=== PATIENT | female | born 1950 | race Caucasian/White ===

== ENCOUNTER 2022-05-29 10:58 | Inpatient (IN) | payer MEDICARE ==
[2022-05-29 12:24] LABS: Basophils % (A) 0 %; Eosinophils % (A) 0 %; HCT 43.9 % (34.0-46.0); HGB 15.4 gm/dL (11.4-16.0); Lymphocytes # (A) 1.1 k/uL (1.0-4.8); Lymphocytes % (A) 11 %; MCH 32.1 pg (25.0-35.0); MCHC 35.1 g/dL (31.0-37.0); MCV 91.7 fL (80.0-100.0); Mean Platelet Volume 7.6; Monocytes # (A) 0.3 k/uL (0-1.0); Monocytes % (A) 3 %; Neutrophils # (A) 8.5 k/uL (1.3-7.7); Neutrophils % (A) 85 %; Platelet Count 329 k/uL (150-450); RBC 4.79 m/uL (3.80-5.40); RDW 11.7 % (11.5-15.5)
[2022-05-29 12:41] LABS: Albumin 5.1 g/dL (3.5-5.0); Potassium 3.6 mmol/L (3.5-5.1); Total Bilirubin 1.6 mg/dL (0.2-1.3); Total Protein 8.5 g/dL (6.3-8.2)
--- NOTE | 2022-05-29 13:23 | XR ---
EXAMINATION TYPE: XR KUB DATE OF EXAM: 05/29/2022 COMPARISON: NONE HISTORY: Pain TECHNIQUE: Single supine KUB image of the abdomen is obtained FINDINGS: Small bowel demonstrates no evidence for dilatation or air fluid levels. Gas and fecal material is seen in non-distended colon. No convincing evidence for pneumoperitoneum. No unusual calcifications. The lung bases are clear. The osseous structures are intact. IMPRESSION: 1. Overall nonobstructive bowel gas pattern.
--- NOTE | 2022-05-29 14:01 | ED ---
General Adult HPI - General Chief complaint: Abdominal Pain Stated complaint: abd pain, nausea Time Seen by Provider: 05/29/22 13:59 Source: patient, RN notes reviewed Mode of arrival: ambulatory Limitations: no limitations - History of Present Illness Initial comments: Patient is a 72-year-old female presenting to the emergency room with complaints of intermittent abdominal pain ongoing for approximately 6 months with worsening over the last few weeks. She reports that she has had constipation and has not had a bowel movement since Thursday and has had episodes of nausea and vomiting with her last episode of emesis this morning she reports that the vomiting is bilious in nature. She denies any hematemesis. She reports that she has pain in the left lower quadrant that is intermittent but persistent in that she feels a bulging in that region at times. She reports that prior to her episodes of emesis she does have some bilateral upper quadrant pain as well. She denies any diarrhea, bloody or mucus-like stool. She denies any chest pain, shortness of breath, altered mental status, lethargy, fevers or chills. She has a past medical history significant for hypertension and hyperlipidemia. She has multiple known abdominal hernias. - Related Data Home Medications Medication Instructions Recorded Confirmed Lovastatin [Mevacor] 20 mg PO HS 03/15/15 05/29/22 hydroCHLOROthiazide [Hydrodiuril] 50 mg PO DAILY 03/15/15 05/29/22 Aspirin EC [Ecotrin] 81 mg PO HS 03/27/15 05/29/22 Acetaminophen [Tylenol Arthritis] 1,300 mg PO DAILY 05/29/22 05/29/22 Famotidine [Pepcid] 20 mg PO HS 05/29/22 05/29/22 Allergies Allergy/AdvReac Type Severity Reaction Status Date / Time balsam destiny Allergy Unknown Verified 05/29/22 15:05 latex Allergy Unknown Verified 05/29/22 15:05 neomycin Allergy Unknown Verified 05/29/22 15:05 nickel Allergy Unknown Verified 05/29/22 15:05 quaternium Allergy Unknown Verified 05/29/22 15:05 thimerosal Allergy Unknown Verified 05/29/22 15:05 rubber Allergy Unknown Uncoded 05/29/22 15:05 Review of Systems ROS Statement: Those systems with pertinent positive or pertinent negative responses have been documented in the HPI. ROS Other: All systems not noted in ROS Statement are negative. Past Medical History Past Medical History: Hyperlipidemia, Hypertension History of Any Multi-Drug Resistant Organisms: None Reported Past Surgical History: Ear Surgery Past Psychological History: No Psychological Hx Reported Past Alcohol Use History: Occasional Past Drug Use History: None Reported General Exam Limitations: no limitations General appearance: alert, in no apparent distress Head exam: Present: atraumatic, normocephalic, normal inspection Eye exam: Present: normal appearance, PERRL, EOMI. Absent: scleral icterus, conjunctival injection, periorbital swelling ENT exam: Present: normal exam, mucous membranes moist Neck exam: Present: normal inspection. Absent: tenderness Respiratory exam: Present: normal lung sounds bilaterally. Absent: respiratory distress, wheezes, rales, rhonchi, stridor Cardiovascular Exam: Present: regular rate, normal rhythm, normal heart sounds. Absent: systolic murmur, diastolic murmur, rubs, gallop, clicks GI/Abdominal exam: Present: soft, tenderness (LLQ), hernia (umbical reducible; left lower tender no significant reduction on exam). Absent: distended, guarding, rebound, rigid Rectal exam: Present: deferred Extremities exam: Present: normal inspection. Absent: pedal edema, joint swelling Back exam: Present: normal inspection, full ROM Neurological exam: Present: alert, oriented X3, CN II-XII intact Psychiatric exam: Present: normal affect, normal mood Skin exam: Present: warm, dry, intact, normal color. Absent: rash Course Vital Signs 05/29/22 11:41 Temperature 98.7 F Pulse Rate 110 H Respiratory 20 Rate Blood Pressure 144/75 O2 Sat by Pulse 95 Oximetry Medical Decision Making - Medical Decision Making 72-year-old female presenting to the emergency room with intermittent abdominal pain with no bowel movement for 4 days along with nausea and vomiting worse after eating. KUB, CBC and CMP all ordered and completed after triage prior to being evaluated by provider. KUB interpreted by me demonstrates nonsp ecific gas pattern. See FEEDER WORKER POWER UNIT OPERATOR reveals elevated total bilirubin at 1.6 and elevated creatinine at 1.35 without previous known hepatic disease or renal disease. Is to elevate ALT and AST and alk phos all normal. CBC had a initial count of 8.5 otherwise unremarkable. Due to symptom presentation will obtain CT of the abdomen and pelvis to rule out further GI etiology. CT of the abdomen and pelvis without contrast demonstrates left-sided hernia with small bowel obstruction. Unincarcerated umbilical hernia also demonstrated on computed tomography scan. Radiologist report reviewed. Will start on IV hyd ration and keep nothing by mouth. Will page surgeon organic preparation analyst for further recommendations and admission for small bowel obstruction. Dr. Card evaluated patient and is admitting patient for possible surgery later this evening versus in the a.m. No further orders received at this time. Will place admission orders to Dr. york service with consult to medical management. Spoke with Dr. scott earlier in the afternoon regarding likelihood of admission and need for medical management he advises that they will follow patient from medical standpoint. Patient resting comfortably at this time. Will maintain nothing by mouth status. Denies analgesic need at this time. Case discussed with Dr. Richey. - Lab Data Result diagrams: 05/29/22 11:48 12 11:48 Lab Results 05/29/22 05/29/22 Range/Units 11:48 11:48 WBC 10.0 (3.8-10.6) k/uL RBC 4.79 (3.80-5.40) m/uL Hgb 15.4 (11.4-16.0) gm/dL Hct 43.9 (34.0-46.0) % MCV 91.7 (80.0-100.0) fL MCH 32.1 (25.0-35.0) pg MCHC 35.1 (31.0-37.0) g/dL RDW 11.7 (11.5-15.5) % Plt Count 329 (150-450) k/uL MPV 7.6 Neutrophils % 85 % Lymphocytes % 11 % Monocytes % 3 % Eosinophils % 0 % Basophils % 0 % Neutrophils # 8.5 H (1.3-7.7) k/uL Lymphocytes # 1.1 (1.0-4.8) k/uL Monocytes # 0.3 (0-1.0) k/uL Eosinophils # 0.0 (0-0.7) k/uL Basophils # 0.0 (0-0.2) k/uL Sodium 133 L (137-145) mmol/L Potassium 3.6 (3.5-5.1) mmol/L Chloride 84 L (98-107) mmol/L Carbon Dioxide 36 H (22-30) mmol/L Anion Gap 13 mmol/L BUN 16 (7-17) mg/dL Creatinine 1.35 H (0.52-1.04) mg/dL Est GFR (CKD-EPI)AfAm 45 (>60 ml/min/1.73 sqM) Est GFR (CKD-EPI)NonAf 39 (>60 ml/min/1.73 sqM) Glucose 128 H (74-99) mg/dL Calcium 10.0 (8.4-10.2) mg/dL Total Bilirubin 1.6 H (0.2-1.3) mg/dL AST 28 (14-36) U/L ALT 20 (4-34) U/L Alkaline Phosphatase 87 (38-126) U/L Total Protein 8.5 H (6.3-8.2) g/dL Albumin 5.1 H (3.5-5.0) g/dL Amylase 69 (30-110) U/L Lipase 83 (23-300) U/L - Radiology Data Radiology results: report reviewed, image reviewed KUB impression by radiologist overall nonobstructive gas bowel pattern. CT of the abdomen and pelvis impression by radiologist incarcerated left-sided spigelian resulting in small bowel obstruction. Disposition Clinical Impression: Small bowel obstruction, Incarcerated hernia Disposition: ADMITTED IP TO THIS [facility] Condition: Stable Is patient prescribed a controlled substance at d/c from ED?: No Referrals: Nakia Juan MD [Primary Care Provider] - 1-2 days
--- NOTE | 2022-05-29 15:21 | CT ---
EXAMINATION TYPE: CT abdomen pelvis wo con DATE OF EXAM: 05/29/2022 COMPARISON: None HISTORY: abdominal pain, vomiting CT DLP: 581.4 mGycm Examination of the solid and hollow viscera is limited given the lack of contrast. FINDINGS: LUNG BASES: No evidence for nodule. No evidence for infiltrate. LIVER/GB: The gallbladder is unremarkable. No space-occupying hepatic lesion. PANCREAS: No pancreatic mass identified. No inflammatory process seen. SPLEEN: No evidence for splenomegaly. No intrasplenic lesions seen. ADRENALS: No adrenal nodules identified. No evidence for thickening. KIDNEYS: No evidence for renal mass. No nephrolithiasis. No hydronephrosis. BOWEL: Dilated small bowel loops measuring up to 4.7 cm involving primarily the jejunum. Incarcerated left-sided spigelian hernia see coronal image 35 sequence 202 and axial image 57 sequence 201. Dilat ed stomach and refluxing into the esophagus. Hiatal hernia noted. Remaining small bowel loops are of normal caliber. Fat-containing umbilical hernia. Normal appendix and colon. Lymph nodes: No evidence for adenopathy greater than 1 cm. Abdominal aorta: Atheromatous changes seen. No evidence for aneurysm. Genital organs: No significant abnormality. Other: No significant abnormality. IMPRESSION: 1. Incarcerated left-sided spigelian hernia resulting in small bowel obstruction.
[2022-05-29] MEDS ORDERED: SODIUM CHLORIDE 0.9% 1,000 ML IV STA (15:44)
--- NOTE | 2022-05-29 18:17 | P.GSHP ---
History of Present Illness H&P Date: 05/29/22 Chief Complaint: Incarcerated hernia 72-year-old female comes in the hospital with complaints of abdominal pain over the last 2-3 days. Patient describes intermittent pain for the last 6 months but over the last few days it was worse. It was crampy in nature along with abd ominal bloating and frequent vomiting. Last small moment 3 days ago. Patient with known umbilical hernia. She states she already knew she had 2 protruding lumps in the left side of her abdomen as well. White blood cell count is 10. CAT scan was performed showing a incarcerated left spigelian hernia containing a loop of bowel causing bowel obstruction. Liver enzymes slightly elevated. No prior surgeries. CAT scan also showing moderate sized umbilical hernia. Past Medical History Past Medical History: Hyperlipidemia, Hypertension History of Any Multi-Drug Resistant Organisms: None Reported Past Surgical History: Ear Surgery Past Psychological History: No Psychological Hx Reported Past Alcohol Use History: Occasional Past Drug Use History: None Reported Medications and Allergies Home Medications Medication Instructions Recorded Confirmed Type Lovastatin [Mevacor] 20 mg PO HS 03/15/15 05/29/22 History hydroCHLOROthiazide [Hydrodiuril] 50 mg PO DAILY 03/15/15 05/29/22 History Aspirin EC [Ecotrin] 81 mg PO HS 03/27/15 05/29/22 History Acetaminophen [Tylenol Arthritis] 1,300 mg PO DAILY 05/29/22 05/29/22 History Famotidine [Pepcid] 20 mg PO HS 05/29/22 05/29/22 History Allergies Allergy/AdvReac Type Severity Reaction Status Date / Time balsam destiny Allergy Unknown Verified 05/29/22 15:05 latex Allergy Unknown Verified 05/29/22 15:05 neomycin Allergy Unknown Verified 05/29/22 15:05 nickel Allergy Unknown Verified 05/29/22 15:05 quaternium Allergy Unknown Verified 05/29/22 15:05 thimerosal Allergy Unknown Verified 05/29/22 15:05 rubber Allergy Unknown Uncoded 05/29/22 15:05 Surgical - Exam Vital Signs Temp Pulse Resp BP Pulse Ox 98.7 F 110 H 20 144/75 95 05/29/22 11:41 05/29/22 11:41 05/29/22 11:41 05/29/22 11:41 05/29/22 11:41 Physical exam: General: Well-developed, well-nourished HEENT: Normocephalic, sclerae nonicteric Abdomen: Mild distention, mild diffuse tenderness, umbilical hernia able to be reduced, no palpable left inguinal hernia, palpable hernia left lower abdomen at suspected site of spigelian unable to be reduced Extremities: No edema Neuro: Alert and oriented Results - Labs 05/29/22 11:48 05/29/22 11:48 Abnormal Lab Results - Last 24 Hours (Table) 05/29/22 05/29/22 Range/Units 11:48 11:48 Neutrophils # 8.5 H (1.3-7.7) k/uL Sodium 133 L (137-145) mmol/L Chloride 84 L (98-107) mmol/L Carbon Dioxide 36 H (22-30) mmol/L Creatinine 1.35 H (0.52-1.04) mg/dL Glucose 128 H (74-99) mg/dL Total Bilirubin 1.6 H (0.2-1.3) mg/dL Total Protein 8.5 H (6.3-8.2) g/dL Albumin 5.1 H (3.5-5.0) g/dL Diabetes panel 05/29/22 Range/Units 11:48 Sodium 133 L (137-145) mmol/L Potassium 3.6 (3.5-5.1) mmol/L Chloride 84 L (98-107) mmol/L Carbon Dioxide 36 H (22-30) mmol/L BUN 16 (7-17) mg/dL Creatinine 1.35 H (0.52-1.04) mg/dL Glucose 128 H (74-99) mg/dL Calcium 10.0 (8.4-10.2) mg/dL AST 28 (14-36) U/L ALT 20 (4-34) U/L Alkaline Phosphatase 87 (38-126) U/L Total Protein 8.5 H (6.3-8.2) g/dL Albumin 5.1 H (3.5-5.0) g/dL Calcium panel 05/29/22 Range/Units 11:48 Calcium 10.0 (8.4-10.2) mg/dL Albumin 5.1 H (3.5-5.0) g/dL Pituitary panel 05/29/22 Range/Units 11:48 Sodium 133 L (137-145) mmol/L Potassium 3.6 (3.5-5.1) mmol/L Chloride 84 L (98-107) mmol/L Carbon Dioxide 36 H (22-30) mmol/L BUN 16 (7-17) mg/dL Creatinine 1.35 H (0.52-1.04) mg/dL Glucose 128 H (74-99) mg/dL Calcium 10.0 (8.4-10.2) mg/dL Adrenal panel 05/29/22 Range/Units 11:48 Sodium 133 L (137-145) mmol/L Potassium 3.6 (3.5-5.1) mmol/L Chloride 84 L (98-107) mmol/L Carbon Dioxide 36 H (22-30) mmol/L BUN 16 (7-17) mg/dL Creatinine 1.35 H (0.52-1.04) mg/dL Glucose 128 H (74-99) mg/dL Calcium 10.0 (8.4-10.2) mg/dL Total Bilirubin 1.6 H (0.2-1.3) mg/dL AST 28 (14-36) U/L ALT 20 (4-34) U/L Alkaline Phosphatase 87 (38-126) U/L Total Protein 8.5 H (6.3-8.2) g/dL Albumin 5.1 H (3.5-5.0) g/dL Assessment and Plan (1) Incarcerated hernia Narrative/Plan: 72-year-old female with incarcerated hernia left lower abdomen likely representing a spigelian hernia. Clinical scenario reviewed in detail with the patient and also her sister. Patient will require surgical intervention given the inability to reduce this at this time. Laparoscopic and open approaches discussed. We'll proceed with open repair incarcerated spigelian hernia. We'll not plan on utilizing mesh given the small bowel incarceration and associated bowel obstruction present. Risks of bleeding, infection, recurrence, bladder and bowel injury, numbness, nerve injury were discussed with the patient. The patient understands and wishes to proceed. Current Visit: Yes Status: Acute Code(s): K46.0 - UNSP ABDOMINAL HERNIA WITH OBSTRUCTION, WITHOUT GANGRENE SNOMED Code(s): 00869703
[2022-05-29] MEDS ORDERED: NALOXONE 0.4 MG/ML 1 ML VIAL IV PRN (19:29)
[2022-05-30] MEDS ORDERED: ONDANSETRON 4 MG/2 ML VIAL IVP PRN (00:47)
[2022-05-30] MEDS ORDERED: LACTATED RINGERS 1,000 ML IV ONE ×4 (02:07→03:10)
[2022-05-30] MEDS ORDERED: METOCLOPRAMIDE 5 MG/ML 2 ML VIAL IVP ONE (02:10)
[2022-05-30] MEDS ORDERED: FAMOTIDINE 20 MG/2 ML VIAL IVP ONE (02:15)
[2022-05-30] MEDS ORDERED: PROPOFOL 10 MG/ML 20 ML VIAL IV ONE (02:38)
[2022-05-30] MEDS ORDERED: SUCCINYLCHOLINE CHLORIDE 200 MG/10 ML VIAL IV ONE (02:38)
[2022-05-30] MEDS ORDERED: GLYCOPYRROLATE 0.2 MG/ML 2 ML VIAL ONE (02:38)
[2022-05-30] MEDS ORDERED: LIDOCAINE 2% INJ 20 MG/ML (2 ML VIAL) ONE (02:38)
[2022-05-30] MEDS ORDERED: MIDAZOLAM 2 MG/2 ML VIAL ONE (02:38)
[2022-05-30] MEDS ORDERED: ROCURONIUM 10 MG/ML (5 ML VIAL) IV ONE (02:38)
[2022-05-30] MEDS ORDERED: NEOSTIGMINE 1 MG/ML 10 ML VIAL ONE (02:38)
[2022-05-30] MEDS ORDERED: fentaNYL (PF) 50 MCG/ML 2 ML AMP ONE (02:38)
[2022-05-30] MEDS ORDERED: SODIUM CHLORIDE 0.9% 100 ML with ceFAZolin 2,000 MG IV ONE ×2 (03:00)
[2022-05-30] MEDS ORDERED: BUPIVACAIN-EPI 0.25%-1:200,000 30 ML VIAL SQ ONE (03:10)
[2022-05-30] MEDS ORDERED: HYDROcodone/APAP 5-325MG 1 EACH TAB PO PRN (03:37)
[2022-05-30] MEDS ORDERED: HYDROmorphone 0.5 MG/0.5 ML SYRINGE IVP PRN (03:37)
--- NOTE | 2022-05-30 03:44 | P.OP ---
Date of Procedure: 05/30/22 Procedure(s) Performed: PREOPERATIVE DIAGNOSIS: Incarcerated left spigelian hernia with bowel obstruction POSTOPERATIVE DIAGNOSIS: Same PROCEDURE: Repair incarcerated left spigelian hernia SURGEON: Dr. Card ANESTHESIA: General OPERATIVE PROCEDURE DETAILS: Patient placed in the operative table in supine pos ition. The patient was placed under general anesthesia. Prior anesthesia the patient had a gastric tube placed with 1.5 L of succus evacuated. Later this was switched to a nasogastric tube. A horizontal incision was made in the left lower quadrant overlying the palpable mass. Dissection through the subcutaneous tissues took place using electrocautery. The external oblique was identified and freed of the surrounding fat. This was incised sharply. The underlying hernia sac was then easily seen penetrating through the internal oblique musculature. The hernia sac was not able to be reduced. The defect in the fascia at the internal oblique was lengthened using sharp dissection. Following that we were able to reduce the contents of the hernia. The hernia sac was partially excised. I was able to identify the loop of bowel that was incarcerated. After watching it for several minutes it took on a nice healthy pink color with good peristalsis. There was no evidence of permanent ischemia. The peritoneum was closed using a running locking 2-0 Vicryl suture. The internal oblique/transversus layer was closed horizontally using [id number] Ethibond sutures. The external oblique was then closed using a running 0 PDS suture. Subcutaneous tissues were closed using 3-0 Vicryl sutures. Skin was closed using a running 4-0 Monocryl suture. Skin glue and sterile dressings w ere applied. HERNIA CHARACTERISTICS: Length: 2 cm Width: 2 cm Type: Incarcerated left spigelian TYPE OF MESH USED: None DISPOSITION: Stable to recovery room
[2022-05-30] MEDS ORDERED: HYDROmorphone 0.5 MG/0.5 ML SYRINGE IVP ONE ×2 (03:50→04:07)
[2022-05-30] MEDS ORDERED: SODIUM CHLORIDE 0.9% 1,000 ML IV ONE (04:32)
[2022-05-30] MEDS: KETOROLAC 15 MG/ML 1 ML VIAL IVP SCH ×2 (05:58→12:50)
[2022-05-30] MEDS: ACETAMINOPHEN IV (For NPO) 1,000 MG in EMPTY BAG 1 BAG IVPB SCH ×3 (06:00→17:24)
[2022-05-30] MEDS: HEPARIN SODIUM,PORCINE/PF 5,000 UNIT/0.5 ML SYRINGE SQ SCH ×2 (09:25→17:24)
[2022-05-30] MEDS: PANTOPRAZOLE 40 MG/10 ML VIAL IV SCH (09:25)
--- NOTE | 2022-05-30 16:08 | P.PN ---
Subjective Progress Note Date: 05/30/22 CHIEF COMPLAINT: incarcerated left spigelian hernia with bowel obstruction HISTORY OF PRESENT ILLNESS: Patient is postop day #1 status post Repair incarcerated left spigelian hernia. Patient had Mild pain. She feels much better after surgery. She denies any nausea or vomiting. She is urinating without difficulty. She denies any flatus. Minimal to 0 output through NG tube. Afebrile. WBC 10 Hgb 15.4 creatinine is 1.35 Patient seen and examined with Dr. mathis PHYSICAL EXAM: VITAL SIGNS: Reviewed. GENERAL: Well-developed in no acute distress. HEENT: No sclera icterus. Extraocular movements grossly intact. Moist buccal mucosa. Head is atraumatic, normocephalic. ABDOMEN: Soft. Nondistended. Left groin incision dressing clean dry and intact NEUROLOGIC: Alert and oriented. Cranial nerves II through XII grossly intact. ASSESSMENT: 1. Incarcerated left spigelian hernia with bowel obstruction status post Repair incarcerated left spigelian hernia PLAN: -Discontinue NG tube -Start sips of clears -Encourage patient to ambulate -Incentive spirometer ordered -Discontinue Toradol due to elevated creatinine -Repeat labs in a.m. -GI prophylaxis Protonix and DVT prophylaxis subcu heparin Physician Ammonium Nitrate Crystallizer note has been reviewed by physician. Signing provider agrees with the documented findings, assessment, and plan of care. Objective - Vital Signs Vital signs: Vital Signs Temp 98.0 F 05/30/22 08:00 Pulse 70 05/30/22 08:00 Resp 16 05/30/22 08:00 BP 121/73 05/30/22 08:00 Pulse Ox 99 05/30/22 08:00 FiO2 Intake & Output 05/29/22 05/30/22 05/30/22 18:59 06:59 18:59 Intake Total 800 Output Total 30 Balance 770 Weight 77.111 kg 77.111 kg Intake: IV 800 Output: Gastric Drainage 25 Estimated Blood Loss 5 - Labs CBC & Chem 7: 05/29/22 11:48 05/29/22 11:48
--- NOTE | 2022-05-30 21:10 | P.CONS ---
History of Present Illness - Reason for Consult Consult date: 05/30/22 Medical management - Chief Complaint Abdominal pain/incarcerated hernia - History of Present Illness 72-year-old female presenting to the emergency room with complaints of intermittent abdominal pain ongoing for approximately 6 months with worsening over the last few weeks. She reports that she has had constipation and has not had a bowel movement since Thursday and has had episodes of nausea and vomiting with her last episode of emesis this morning she reports that the vomiting is bi lious in nature. She denies any hematemesis. She reports that she has pain in the left lower quadrant that is intermittent but persistent in that she feels a bulging in that region at times. She reports that prior to her episodes of emesis she does have some bilateral upper quadrant pain as well. She denies any diarrhea, bloody or mucus-like stool. She denies any chest pain, shortness of breath, altered mental status, lethargy, fevers or chills. She has a past medical history significant for hypertension and hyperlipidemia. She has multiple known abdominal hernias. KUB interpreted by me demonstrates nonspecific gas pattern. See DISTRICT CUSTOMS DIRECTOR reveals elevated total bilirubin at 1.6 and elevated creatinine at 1.35 without previous known hepatic disease or renal disease. Is to elevate ALT and AST and alk phos all normal. CBC had a initial count of 8.5 otherwise unremarkable. Due to symptom presentation will obtain CT of the abdomen and pelvis to rule out further GI etiology. CT of the abdomen and pelvis without contrast demonstrates left-sided hernia with small bowel obstruction. Unincarcerated umbilical hernia also demonstrated on computed tomography scan. Radiologist report reviewed. Will start on IV hydration and keep nothing by mouth. Will page surgeon lead front desk agent for further recommendations and admission for small bowel obstruction. Review of Systems REVIEW OF SYSTEMS: CONSTITUTIONAL: No fever, no malaise, no fatigue. HEENT: No recent visual problems or hearing problems. Denied any sore throat. CARDIOVASCULAR: No chest pain, orthopnea, PND, no palpitations, no syncope. PULMONARY: No shortness of breath, no cough, no hemoptysis. GASTROINTESTINAL: No diarrhea, no nausea, no vomiting, no abdominal pain. NEUROLOGICAL: No headaches, no weakness, no numbness. HEMATOLOGICAL: Denies any bleeding or petechiae. GENITOURINARY: Denies any burning micturition, frequency, or urgency. MUSCULOSKELETAL/RHEUMATOLOGICAL: Denies any joint pain, swelling, or any muscle pain. ENDOCRINE: Denies any polyuria or polydipsia. The rest of the 14-point review of systems is negative. Past Medical History Past Medical History: Hyperlipidemia, Hypertension History of Any Multi-Drug Resistant Organisms: None Reported Past Surgical History: Ear Surgery, Tubal Ligation Past Anesthesia/Blood Transfusion Reactions: No Reported Reaction Past Psychological History: No Psychological Hx Reported Smoking Status: Never smoker Past Alcohol Use History: Occasional Past Drug Use History: None Reported Medications and Allergies Home Medications Medication Instructions Recorded Confirmed Type Lovastatin [Mevacor] 20 mg PO HS 03/15/15 05/29/22 History hydroCHLOROthiazide [Hydrodiuril] 50 mg PO DAILY 03/15/15 05/29/22 History Aspirin EC [Ecotrin] 81 mg PO HS 03/27/15 05/29/22 History Acetaminophen [Tylenol Arthritis] 1,300 mg PO DAILY 05/29/22 05/29/22 History Famotidine [Pepcid] 20 mg PO HS 05/29/22 05/29/22 History traMADol HCl [Ultram] 50 mg PO Q6HR PRN 3 Days #12 tab 05/30/22 Rx Allergies Allergy/AdvReac Type Severity Reaction Status Date / Time balsam destiny Allergy Unknown Verified 05/29/22 15:05 latex Allergy Unknown Verified 05/29/22 15:05 neomycin Allergy Unknown Verified 05/29/22 15:05 nickel Allergy Unknown Verified 05/29/22 15:05 quaternium Allergy Unknown Verified 05/29/22 15:05 thimerosal Allergy Unknown Verified 05/29/22 15:05 rubber Allergy Unknown Uncoded 05/29/22 15:05 Physical Exam Vitals: Vital Signs Temp Pulse Pulse Pulse Pulse Resp BP 05/30/22 08:00 98.0 F 70 16 05/30/22 04:30 84 16 05/30/22 04:15 83 17 05/30/22 04:00 94 16 05/30/22 03:45 99.4 F 95 16 05/30/22 02:00 98.8 F 90 15 05/29/22 22:22 94 18 147/72 05/29/22 18:13 98.4 F 85 16 BP BP Pulse Ox 05/30/22 08:00 121/73 99 05/30/22 04:30 138/77 98 05/30/22 04:15 144/74 98 05/30/22 04:00 160/55 96 05/30/22 03:45 174/79 96 05/30/22 02:00 113/69 93 L 05/29/22 22:22 95 05/29/22 18:13 160/71 94 L Intake and Output 05/29/22 05/30/22 05/30/22 22:59 06:59 14:59 Intake Total 800 Output Total 30 Balance 770 Intake: IV 800 Output: Gastric Drainage 25 Estimated Blood Loss 5 Other: Weight 77.111 kg General appearance: alert, in no apparent distress Head exam: Present: atraumatic, normocephalic, normal inspection Eye exam: Present: normal appearance, PERRL, EOMI. Absent: scleral icterus, conjunctival injection, periorbital swelling ENT exam: Present: normal exam, mucous membranes moist Neck exam: Present: normal inspection. Absent: tenderness Respiratory exam: Present: normal lung sounds bilaterally. Absent: respiratory distress, wheezes, rales, rhonchi, stridor Cardiovascular Exam: Present: regular rate, normal rhythm, normal heart sounds. Absent: systolic murmur, diastolic murmur, rubs, gallop, clicks GI/Abdominal exam: Present: soft, tenderness (LLQ), hernia (umbical reducible; left lower tender no significant reduction on exam). Absent: distended, guarding, rebound, rigid Rectal exam: Present: deferred Extremities exam: Present: normal inspection. Absent: pedal edema, joint swelling Back exam: Present: normal inspection, full ROM Neurological exam: Present: alert, oriented X3, CN II-XII intact Results CBC & Chem 7: 05/29/22 11:48 05/29/22 11:48 Assessment and Plan Assessment: 1. Incarcerated hernia/SBO; patient is status post repair incarcerated left spigelian hernia - POD #0 - Patient initially had an NG tube placed which is recommended to be discontinued; increase ambulation - Incentive spirometry - Patient remains on Protonix 40 mg IV daily 2. Mild renal injury; slowly IV fluid hydration; monitor renal function and electrolytes; avoid nephrotoxins and hypotension 3. Hypertension; hold on home dose of hydrochlorothiazide 50 mg daily. Renal function improved 4. Hyperlipidemia; patient takes Mevacor 20 mg by mouth daily at bedtime which will be placed on hold. Oral intake is established DVT prophylaxis; SCDs/subcu heparin CODE STATUS; full code
[2022-05-30] MEDS ORDERED: SODIUM CHLORIDE 0.9% 500 ML 500 ML IV ONE (21:47)
[2022-05-31] MEDS: ACETAMINOPHEN IV (For NPO) 1,000 MG in EMPTY BAG 1 BAG IVPB SCH ×4 (01:16→15:23)
[2022-05-31] MEDS: HEPARIN SODIUM,PORCINE/PF 5,000 UNIT/0.5 ML SYRINGE SQ SCH ×4 (01:17→23:52)
[2022-05-31] MEDS: PANTOPRAZOLE 40 MG/10 ML VIAL IV SCH (10:22)
--- NOTE | 2022-05-31 11:06 | P.PN ---
Progress Note - Text Progress Note Date: 05/31/22 Patient states she feels better today. She is tolerating clear liquids. On exam vital signs are stable. Abdomen soft. Patient will have her diet advanced 300 dye. We discussed the discharge home tomorrow.
[2022-05-31 11:31] LABS: Basophils # (A) 0.01 X 10*3/uL (0.00-0.10); Basophils % (A) 0.1 %; Eosinophils % (A) 1.4 %; HGB 11.4 g/dL (12.0-15.0); Immature Grans, Automated 0.3 %; Lymphocytes % (A) 25.8 %; MCH 30.9 pg (27.0-32.0); MCHC 31.7 g/dL (32.0-37.0); MCV 97.6 fL (80.0-97.0); Mean Platelet Volume 10.4 fL (9.5-12.2); Monocytes # (A) 0.59 X 10*3/uL (0.20-1.00); NRBC Per 100 WBC 0 /100 WBCS (0.0-0.0); Neutrophils # (A) 4.74 X 10*3/uL (1.80-7.70); Neutrophils % (A) 64.4 %; Platelet Count 227 X 10*3/uL (140-440); RBC 3.69 X 10*6/uL (4.10-5.20); RDW 12.3 % (11.5-14.5); WBC 7.36 X 10*3/uL (4.50-10.00)
[2022-05-31 11:55] LABS: Anion Gap 14.3 mmol/L (10.00-18.00); BUN/Creat Ratio 20.83 Ratio (12.00-20.00); Blood Urea Nitrogen 22.5 mg/dL (9.0-27.0); Calcium 8.5 mg/dL (8.7-10.3); Carbon Dioxide 32.1 mmol/L (20.0-27.5); Non-African American GFR(CKD) 50.9 (60.0-200.0)
[2022-05-31] MEDS ORDERED: ACETAMINOPHEN TAB 500 MG TAB PO PRN (15:31)
[2022-05-31] MEDS ORDERED: POTASSIUM CHLORIDE ER 20 MEQ TAB.ER PO STA (17:24)
--- NOTE | 2022-05-31 18:27 | P.PN ---
Subjective Progress Note Date: 05/31/22 72-year-old female presenting to the emergency room with complaints of intermittent abdominal pain ongoing for approximately 6 months with worsening over the last few weeks. She reports that she has had constipation and has not had a bowel movement since Thursday and has had episodes of nausea and vomiting with her last episode of emesis this morning she reports that the vomiting is bilious in nature. She denies any hematemesis. She reports that she has pain in the left lower quadrant that is intermittent but persistent in that she feels a bulging in that region at times. She reports that prior to her episodes of emesis she does have some bilateral upper quadrant pain as well. She denies any diarrhea, bloody or mucus-like stool. She denies any chest pain, shortness of breath, altered mental status, lethargy, fevers or chills. She has a past medical history significant for hypertension and hyperlipidemia. She has multiple known abdominal hernias. KUB interpreted by me demonstrates nonspecific gas pattern. See SELF PROPELLED DREDGE OPERATOR reveals elevated total bilirubin at 1.6 and elevated creatinine at 1.35 without previous known hepatic disease or renal disease. Is to elevate ALT and AST and alk phos all normal. CBC had a initial count of 8.5 otherwise unremarkable. Due to symptom presentation will obtain CT of the abdomen and pelvis to rule out further GI etiology. CT of the abdomen and pelvis without contrast demonstrates left-sided hernia with small bowel obstruction. Unincarcerated umbilical hernia also demonstrated on computed tomography scan. Radiologist report reviewed. Will start on IV hy dration and keep nothing by mouth. Will page surgeon control panel tester for further recommendations and admission for small bowel obstruction. Objective - Vital Signs Vital signs: Vital Signs Temp 98.1 F 05/31/22 10:16 Pulse 86 05/31/22 10:16 Resp 18 05/31/22 10:16 BP 132/73 05/31/22 10:16 Pulse Ox 96 05/31/22 10:16 FiO2 Intake & Output 05/30/22 05/31/22 05/31/22 18:59 06:59 18:59 Other: Voiding Method Toilet # Voids 2 2 - Exam General appearance: alert, in no apparent distress Head exam: Present: atraumatic, normocephalic, normal inspection Eye exam: Present: normal appearance, PERRL, EOMI. Absent: scleral icterus, conjunctival injection, periorbital swelling ENT exam: Present: normal exam, mucous membranes moist Neck exam: Present: normal inspection. Absent: tenderness Respiratory exam: Present: normal lung sounds bilaterally. Absent: respiratory distress, wheezes, rales, rhonchi, stridor Cardiovascular Exam: Present: regular rate, normal rhythm, normal heart sounds. Absent: systolic murmur, diastolic murmur, rubs, gallop, clicks GI/Abdominal exam: Present: soft, tenderness (LLQ), hernia (umbical reducible; left lower tender no significant reduction on exam). Absent: distended, guarding, rebound, rigid Rectal exam: Present: deferred Extremities exam: Present: normal inspection. Absent: pedal edema, joint swelling Back exam: Present: normal inspection, full ROM Neurological exam: Present: alert, oriented X3, CN II-XII intact - Labs CBC & Chem 7: 05/31/22 06:49 05/31/22 06:49 Labs: Abnormal Lab Results - Last 24 Hours (Table) 05/31/22 05/31/22 Range/Units 06:49 06:49 RBC 3.69 L (4.10-5.20) X 10*6/uL Hgb 11.4 L (12.0-15.0) g/dL Hct 36.0 L (37.2-46.3) % MCV 97.6 H (80.0-97.0) fL MCHC 31.7 L (32.0-37.0) g/dL Potassium 3.0 L (3.5-5.5) mmol/L Chloride 91 L (96-109) mmol/L Carbon Dioxide 32.1 H (20.0-27.5) mmol/L Est GFR (CKD-EPI)AfAm 59.0 L (60.0-200.0) Est GFR (CKD-EPI)NonAf 50.9 L (60.0-200.0) BUN/Creatinine Ratio 20.83 H (12.00-20.00) Ratio Calcium 8.5 L (8.7-10.3) mg/dL Assessment and Plan Assessment: 1. Incarcerated hernia/SBO; patient is status post repair incarcerated left spigelian hernia - POD #0 - Patient initially had an NG tube placed which is recommended to be discontinued; increase ambulation - Incentive spirometry - Patient remains on Protonix 40 mg IV daily 2. Mild renal injury; slowly IV fluid hydration; monitor renal function and electrolytes; avoid nephrotoxins and hypotension 3. Hypertension; hold on home dose of hydrochlorothiazide 50 mg daily. Renal function improved 4. Hyperlipidemia; patient takes Mevacor 20 mg by mouth daily at bedtime which will be placed on hold. Oral intake is established DVT prophylaxis; SCDs/subcu heparin CODE STATUS; full code
[2022-06-01] MEDS ORDERED: POTASSIUM CHLORIDE ER 20 MEQ TAB.ER PO ONE
[2022-06-01] MEDS ORDERED: PANTOPRAZOLE 40 MG TABLET PO SCH (07:30)
[2022-06-01 08:03] LABS: African American GFR (CKD) >90 (>60 ml/min/1.73 sqM); Anion Gap 6 mmol/L; Blood Urea Nitrogen 13 mg/dL (7-17); Calcium 8.2 mg/dL (8.4-10.2); Carbon Dioxide 32 mmol/L (22-30); Chloride 97 mmol/L (98-107); Glucose 90 mg/dL (74-99); Non-African American GFR(CKD) 88 (>60 ml/min/1.73 sqM); Potassium 3.5 mmol/L (3.5-5.1); Sodium 135 mmol/L (137-145)
[2022-06-01] MEDS: HEPARIN SODIUM,PORCINE/PF 5,000 UNIT/0.5 ML SYRINGE SQ SCH (08:26)
[2022-06-01 09:28] VITALS: BP 151/68; PULSE 83; RESP 17; TEMP 97.7
--- NOTE | 2022-06-01 11:03 | P.DS ---
Providers Date of admission: 05/29/22 19:30 Expected date of discharge: 06/01/22 Attending physician: Laureano Card Consults: 05/29/22 19:29 Consult Physician Routine Consulting Provider: Mitchel Nguyen Reason/Comments: medical management Do you want consulting provider notified?: Already Contacted Primary care physician: [facility] Course: This is a 72-year-old female who underwent repair of a incarcerated ventral hernia. Patient had symptoms of bowel obstruction preoperatively.. Postop the patient did well.. Please see hospital chart for details Procedures: Repair of ventral hernia Patient Condition at Discharge: Stable Plan - Discharge Summary New Discharge Prescriptions: New Ibuprofen [Motrin] 600 mg PO Q6HR PRN #40 tab PRN Reason: Pain oxyCODONE HCL [OxyIR] 5 mg PO Q6H PRN 3 Days #10 tab PRN Reason: Pain Acetaminophen Tab [Tylenol] 650 mg PO Q6H #30 tab traMADol HCl [Ultram] 50 mg PO Q6HR PRN 3 Days #12 tab PRN Reason: Pain Docusate [Colace] 100 mg PO BID #20 capsule No Action Lovastatin [Mevacor] 20 mg PO HS hydroCHLOROthiazide [Hydrodiuril] 50 mg PO DAILY Aspirin EC [Ecotrin] 81 mg PO HS Famotidine [Pepcid] 20 mg PO HS Acetaminophen [Tylenol Arthritis] 1,300 mg PO DAILY Discharge Medication List Lovastatin [Mevacor] 20 mg PO HS 03/15/15 [History] hydroCHLOROthiazide [Hydrodiuril] 50 mg PO DAILY 03/15/15 [History] Aspirin EC [Ecotrin] 81 mg PO HS 03/27/15 [History] Acetaminophen [Tylenol Arthritis] 1,300 mg PO DAILY 05/29/22 [History] Famotidine [Pepcid] 20 mg PO HS 05/29/22 [History] traMADol HCl [Ultram] 50 mg PO Q6HR PRN 3 Days #12 tab 05/30/22 [Rx] Acetaminophen Tab [Tylenol] 650 mg PO Q6H #30 tab 06/01/22 [Rx] Docusate [Colace] 100 mg PO BID #20 capsule 06/01/22 [Rx] Ibuprofen [Motrin] 600 mg PO Q6HR PRN #40 tab 06/01/22 [Rx] oxyCODONE HCL [OxyIR] 5 mg PO Q6H PRN 3 Days #10 tab 06/01/22 [Rx] Follow up Appointment(s)/Referral(s): Laureano Card MD [Medical Doctor] - 1 Week Nakia Juan MD [Primary Care Provider] - 1-2 days Activity/Diet/Wound Care/Special Instructions: No driving while taking ultram No lifting over 10 pounds You may shower. No soaking or tub baths for 2 weeks Very light activity until you are reevaluated at your follow up appointment with your surgeon Discharge Disposition: HOME SELF-CARE
--- NOTE | 2022-06-03 16:23 | CDI ---
Pt Name: Rubi Good CONFIDENTIAL MR#: [id number] Adm Date: 05/29/2022 07:30:00 PM Printed:06/03/2022 Physician Documentation Request Page 1 of 2 ICD-10-CM Ready Physicians Documentation Request This Form is Not a Permanent Document in the Medical Record Pt Name: Rubi Good MR #: [id number] Payor: MEDICARE HMO Unit/Bed: [id number] Adm Date: 05/29/2022 07:30:00 PM Reviewer: Jil Barnett Query Date: 06/03/2022 04:13:00 PM By submitting this query, we are merely seeking further clarification of documentation to accurately reflect all conditions that you are monitoring, evaluating, treating or that extend the hospitalization or utilize additional resources of care. Please utilize your independent clinical judgment when addressing the question(s) below. Dear Doctor Mary Alas, The patients Clinical Indicators include: SEE BELOW There is documentation of mild renal injury in consult note 05/30/22 and progress note 05/31/22. Additional clarification of the acuity of the condition is requested. History/Risk Factors: 72 year old female presented with bilious vomiting, constipation, abdominal pain, hypertension, HDL Clinical Indicators: Found to have Left sided incarcerated spigelian hernia/SBO, nausea, vomiting, constipation Creatinine: 1.35 H on admit, trended downward to 1.1 and 0.66 BUN: 16, 22.5, 13 BUN/Creatinine Ratio: 20.83 H Treatment: Open hernia repair, slow IV fluid hydration Can you please clarify the acuity of the mild renal injury? [ * ] Acute Renal Injury [ ] Chronic Renal Injury [ ] Acute Renal Insufficiency [ ] Other, please specify [ ] Unable to determine PLEASE DOCUMENT ANY ADDITIONAL DIAGNOSES AND/OR SPECIFICITY IN THE PROGRESS NOTES AND/OR DISCHARGE SUMMARY. Agreed & documented Clinically unable to determine/unknown Disagree with the above request Need to discuss Acute Renal Injury MTDD
== END 2022-06-01 12:40 | disposition home or self-care (01) | DRG 354 ==
LOC: EC 10:58 → 4SSUR 19:30
PROVIDERS: ADMIT Surgery; ATTEND Surgery
PROC: 0WQF0ZZ Repair Abdominal Wall, Open Approach (ICD-10-PCS; principal; 2022-05-30 01:00)
DX: K43.6 Other and unspecified ventral hernia with obstruction, without gangrene (principal); N17.9 Acute kidney failure, unspecified; K42.9 Umbilical hernia without obstruction or gangrene; R74.01 Elevation of levels of liver transaminase levels; I10 Essential (primary) hypertension; E78.5 Hyperlipidemia, unspecified; Z79.899 Other long term (current) drug therapy; Z79.82 Long term (current) use of aspirin; Z88.1 Allergy status to other antibiotic agents; Z91.040 Latex allergy status
CPT/HCPCS: 36415; 74018; 74176; 80048; 80053; 82150; 83690; 85025; 88302; 94760; 96360; 96361; 99285